=== PATIENT | female | born 2000 | race Hispanic/Latino ===

== ENCOUNTER 2024-12-12 20:37 | Emergency (ER) | payer SELFPAY ==
[2024-12-12] MEDS ORDERED: Ketorolac Tromethamine 30 MG (1 mL) VIAL ONE (22:12)
== END 2024-12-12 22:24 | disposition home or self-care (01) ==
LOC: ERS 20:37
DX: M54.2 Cervicalgia (principal); M25.519 Pain in unspecified shoulder
CPT/HCPCS: 96372; 99283; J1885